=== PATIENT | female | born 1955 | race Caucasian/White ===

== ENCOUNTER 2017-06-22 10:42 | Outpatient (CLI) | payer MEDICAID ==
[~2017-06-22] VITALS: Ht 167.6 cm; Wt 61.8 kg
--- NOTE | ~2017-06-22 | OP ---
PATIENT NAME: EMMANUEL LIZARRAGA MEDICAL RECORD: [id number] :51 LOCATION:D.CAT ADMISSION DATE: SURGEON: MAXIMINO WHITMAN MD DATE OF OPERATION: 06/22/2017 PROCEDURE: Left heart catheterization, selective coronary angiography, right radial approach. CATHETERS: [place] catheter, radial sheath. The procedure was well tolerated. We proceeded with PTCA stenting of the LAD after procedure finished. FINDINGS: Left ventriculography in 30-degree IBRAHIM view: Normal wall motion, normal systolic function. CORONARY ANATOMY. LEFT MAIN: The left main is free of disease. LAD: Has 2 sequential stenosis, 1 very proximal of 80%, 1 distal 90+ percent. CIRCUMFLEX: Circumflex is free of disease. RIGHT CORONARY ARTERY: Right coronary artery is dominant, gives rise to PDA, free of disease. IMPRESSION: Plan intervention LAD momentarily. DESCRIPTION OF PROCEDURE: Using indwelling sheath, XB LAD guiding catheter, good guide support followed by 300 cm Whisper wire was placed across both occlusions in the LAD. Distal vessel was addressed with a 3.0 x 12 mm Resolute drug-eluting stent up to 12 atmospheres. The proximal almost ostial 80% lesion was addressed with a 3.0 x 50 mm Resolute drug-eluting stent up to 14 atmospheres. Final angiography shows excellent resolution of 90% stenosis distally and 80% stenosis proximally. SHANI flow was 3 throughout the procedure. Plavix was loaded in the lab. Sheath closed with TR band. TRANSINT:[id number] Voice Confirmation ID: [id number] DOCUMENT ID: [id number] MAXIMINO WHITMAN MD at 1155 CC: [id number] DICTATION DATE: 06/22/17 1347 TIRE STRIPPER: 06/22/17 1410 DEP CLI 06/22/17 [facility] [address] [id number]
--- NOTE | ~2017-06-22 | HEMODYNAMI ---
PATIENT:EMMANUEL LIZARRAGA MEDICAL RECORD: [id number] : 51 LOCATION:ROLF ADMISSION DATE: 06/22/17 Generatedon:06/22/201713:49 Patient name: EMMANUEL LIZARRAGA Patient #: [id number] : 1955 Date of study: 06/22/2017 Page: Of Hemodynamic Procedure Report Patient Data Patient Demographics Procedure consent was obtained First Name: EMMANUEL Gender: Female Last Name: ELHAM : 1955 Middle Initial: DONTA RUTHERFORD Age: 61 year(s) Patient #: [id number] Race: SSN: [id number] Additional ID: [id number] Contact details [address]: [address] [place] [address] State: [place] City: [place] Zip code: [address] Admission Admission Data Admission Date: 06/22/2017 Admission Time: 10:42 Arrival Date: 06/22/2017 Arrival Time: 13:00 Admit Source: Other Insurance Payor: Private health insurance Height (in.): 66 BSA: 1.69 (m2) Height (cm.): 167.64 BMI: 21.63 (kg/m2) Weight (lbs.): 134 Weight (kg.): 60.78 Lab Results Lab Result Date: 06/22/2017 Lab Result Time: 0:00 Biochemistry Name Units Result Min Max BUN mg/dl 16 --(---*)-- 7 18 Creatinine mg/dl 0.8 --(-*--)-- 0.6 1.3 CBC Name Units Result Min Max Hemoglobin g/dl 13.7 --(*---)-- 13.5 17.5 Procedure Procedure Types Cath Procedure Diagnostic Procedure [facility] w/Coronaries PCI Procedure Coronary Stent Coronary Stent Initial Procedure Description Procedure Date Procedure Date: 06/22/2017 Procedure Start Time: 13:20 Procedure End Time: 13:44 Procedure Staff Name Function Esteban Goodwin MD Performing Physician Eleonora Hendrix RT Monitor Gustabo Baumann RN Nurse Fabiola George RT Scrub Procedure Data Cath Procedure Fluoroscopy Diagnostic fluoroscopy Total fluoroscopy Time: 5.7 time: 5.7 min min Diagnostic fluoroscopy Total fluoroscopy dose: 698 dose: 698 mGy mGy Contrast Material Contrast Material Type Amount (ml) Isovue 300 104 Entry Location Entry Primary Successful Side Size Upsize Upsize Entry Closure Edwards ccessful Closure Location (Fr) 1 (Fr) 2 (Fr) Remarks Device Remarks Radial Right 6 Fr Mechanical artery Short Compression Estimated blood loss: 5 ml Diagnostic catheters Device Type Used For End Catheter Placement DIAGNOSTIC [place] 110cm 5 Multi-vessel Fr catheter ([id number]) Angiography Procedure Complications No complications Procedure Medications Medication Administration Route Dosage Oxygen etCO2 Nasal cannula 2 l/min Heparin Flush Bag added to field 2 bags (1000units/500ml NS) 0.9% NaCl I.V. 100 ml/hr Radial Cocktail added to field 1 syringe (Verapomil 2mg/Nitro 400mcg/Heparin 1500units) Fentanyl I.V. 50 mcg Versed I.V. 1 mg Radial Cocktail I.A. 1 syringe (Verapomil 2mg/Nitro 400mcg/Heparin 1500units) Zofran I.V. 4 mg Fentanyl I.V. 50 mcg Versed I.V. 1 mg Heparin Bolus I.V. 4000 units Integrilin (Bolus I.V. 5.6 ml 2mg/ml) Plavix P.O. 600 mg Hemodynamics Rest BSA: 1.69 (m2) HGB: 13.7 (g/dl) O2 Consumption: Estimated: 155.08 (ml/min) O2 Co nsumption indexed: Estimated:91.76 (ml/min/m) Heart Rate: 65 (bpm) Pressure Samples Time Site Value (mmHg) Purpose Heart Use Rate(bpm) 13:24 LV 156/17,-8 Snapshot 43 13:25 AO 131/75(102) Pullback 101 13:25 LV 121/-12,-10 Pullback 101 Gradients Valve Time Site 1 Site 2 Mean SEP/DFP Peak To Heart Use (mmHg) (sec/min) Peak Rate (mmHg) (bpm) Aortic 13:25 LV AO 0 101 121/-12,-10 131/75(102) Calculations Valve P-P Mean Valve Index Valve Source Name Gradient Area Flow (cm2) Aortic 0 0 Snapshots Pre Cath Intra NCS Post Cath Vital Signs Time Heart Resp SPO2 etCO2 NIBP (mmHg) Rhythm Pain Sedation Rate (ipm) (%) (mmHg) Status Level (bpm) 13:04:58 64 16 98 0 154/89(133) NSR 0 (11) 10(A) , No pain 13:09:14 69 17 96 0 145/83(110) NSR 0 (11) 10(A) , No pain 13:13:24 67 17 96 0 149/94(115) NSR 0 (11) 10(A) , No pain 13:17:34 64 17 96 0 157/92(110) NSR 0 (11) 10(A) , No pain 13:21:46 90 17 96 35.5 156/103(139) NSR 0 (11) 10(A) , No pain 13:25:58 92 17 99 38.4 138/94(126) NSR 0 (11) 10(A) , No pain 13:30:05 80 16 98 11.8 139/88(111) NSR 0 (11) 9(A) , No pain 13:34:16 79 18 98 28 140/85(120) NSR 0 (11) 9(A) , No pain 13:38:24 84 16 100 37.7 150/93(128) NSR 0 (11) 9(A) , No pain 13:42:33 91 16 100 39.1 159/96(130) NSR 0 (11) 9(A) , No pain Medications Time Medication Route Dose Verified Delivered Reason Not es Effectiveness by by 13:23:35 Oxygen etCO2 2 l/min Esteban Coleman Per physician Nasal [facility] RN cannula 13:23:44 Heparin Flush added 2 bags Esteban Coleman used for Bag to [facility] RN procedure (1000units/500ml field LACY NS) 13:23:53 0.9% NaCl I.V. 100 Esteban Coleman Per physician ml/hr [facility] RN, MD 13:24:03 Radial Cocktail added 1 Esteban Coleman used for (Verapomil to syringe [facility] RN procedure 2mg/Nitro field LACY 400mcg/Heparin 1500units) 13:24:11 Fentanyl I.V. 50 mcg Esteban Coleman for sedation [facility] RN, MD 13:24:19 Versed I.V. 1 mg Esteban Coleman for sedation [facility] RN, MD 13:24:39 Radial Cocktail I.A. 1 Esteban Orellana for (Verapomil syringe ChristaAnthony Goodwin vasodilation 2mg/Nitro MD LACY 400mcg/Heparin 1500units) 13:27:13 Zofran I.V. 4 mg Esteban Coleman for nausea [facility] RN, MD 13:27:22 Fentanyl I.V. 50 mcg Esteban Coleman for sedation [facility] RN, MD 13:27:26 Versed I.V. 1 mg Esteban Coleman for sedation [facility] RN, MD 13:32:34 Heparin Bolus I.V. 4000 Esteban Coleman for units [facility] RN anticoagulation 13:32:48 Integrilin I.V. 5.6 ml Esteban Coleman for (Bolus 2mg/ml) [facility] RN antiplatelet therapy 13:44:21 Plavix P.O. 600 mg Esteban Coleman for [facility] RN antiplatelet therapy Procedure Log Time Note 12:44:04 Informed consent obtained and on chart 12:50:28 Eleonora Hendrix RT(R) sent for patient. Start room use. 13:03:37 Time tracking: Regular hours 13:03:41 Plan of Care:Hemodynamics will remain stable., Cardiac rhythm will remain stable., Comfort level will be maintained., Respiratory function will remain adequate., Patient/ family verbilizes understanding of procedure., Procedure tolerated without complication., Recovers from procedure without complications.. 13:03:46 Patient received from Pre/Post Procedure Room to CCL 2 Alert and oriented. Tansferred to table in Supine position. 13:03:47 Warm blankets applied, and karina hugger turned on for patient comfort. 13:03:47 Correct patient and procedure confirmed by team. 13:03:48 ECG and BP/O2 sat monitors applied to patient. 13:03:49 Vital chart was started 13:03:52 Baseline sample Acquired. 13:03:56 Rhythm: sinus rhythm 13:03:57 Full Disclosure recording started 13:04:10 H&P Date Dictated: 06/16/2017 Within 30 days and on chart., H&P Addendum completed by physician on day of procedure. (MUST COMPLETE FOR ALL OUTPATIENTS). 13:04:11 Pre-procedure instructions explained to patient. 13:04:12 Pre-op teaching completed and patient verbalized understanding. 13:04:13 Family in waiting room. 13:04:14 Patient NPO since Midnight. 13:04:16 Is the patient allergic to Iodine/contrast media? No. 13:04:18 Was the patient premedicated? No 13:04:20 Is patient on blood thinner?No 13:04:22 Patient diabetic? Yes. 13:04:23 If diabetic: On Metformin? Yes 13:04:26 If on Metformin: Last Dose? 06/20/2017 13:04:30 Previous problem with sedation/anesthesia? No ? 13:04:35 Snore? Yes 13:04:36 Sleep apnea? No 13:04:37 Deviated septum? No 13:04:38 Opens mouth fully? Yes 13:04:38 Sticks out tongue? Yes 13:04:40 Airway obstruction? No ? 13:04:43 Dentures? No ? 13:05:04 Pre procedure: right dorsailis pedis pulse 1+ Palpable, but thready & weak; easily obliterated 13:05:07 Pre procedure: left dorsailis pedis pulse 1+ Palpable, but thready & weak; easily obliterated 13:05:16 Patient pain scale 0/10 ?. 13:05:41 Lab results completed and on chart. 13:05:45 Right Radial & Right Groin area was prepped with chlora-prep and draped in sterile fashion 13:05:46 Alarms reviewed by R. N. 13:05:47 Sharps counted by scrub and verified by R.N. 13:13:01 Admit Source: Other 13:13:03 Arrival Date: 06/22/2017 1:00:00 PM 13:13:13 Insurance Payor : Private health insurance 13:13:22 Patient Height : 66 inches 13:13:25 Patient Weight : 134 lbs 13:15:00 Lab Result : Hemoglobin 13.7 g/dl 13:15:00 Lab Result : Creatinine 0.8 mg/dl 13:15:00 Lab Result : BUN 16 mg/dl 13:18:18 Physician arrived 13:18:19 --------ALL STOP TIME OUT------ 13:18:19 Final Timeout: patient, procedure, and site verified with staff and physician. All members of the team are in agreement. 13:18:22 Right Radial & Right Groin site verified by team. 13:18:25 Physical assessment completed. ASA score P 2 - A patient with mild systemic disease as per Esteban Goodwin MD. 13:18:29 Sedation plan: IV Moderate Sedation Medication:Versed, Fentanyl 13:18:35 Use device set Radial Dx or PCI 13:18:36 ACIST Syringe (83141) opened to sterile field. 13:18:37 Medline Cath Pack ([id number]) opened to sterile field. 13:18:37 Bag Decanter (2002S) opened to sterile field. 13:18:39 DIAGNOSTIC WIRE .035 260cm J wire (905281) opened to sterile field. 13:18:48 ACIST Hand Control (30723) opened to sterile field. 13:18:49 ACIST Manifold (29659) opened to sterile field. 13:18:50 Tegaderm 4 x 4 (1626W) opened to sterile field. 13:18:50 MBrace Wrist Support ([id number]) opened to sterile field. 13:20:34 SHEATH 6Fr Prelude Radial ([id number]) opened to sterile field. 13:20:40 Procedure started. 13:20:46 Local anesthetic to right radial artery with Lidocaine 2% by Esteban Goodwin MD.INITIAL ACCESS ONLY 13:21:00 A 6 Fr Short sheath was inserted into the Right Radial artery 13:23:16 A DIAGNOSTIC [place] 110cm 5 Fr catheter ([id number]) was advanced over the wire and used for Multi-vessel Angiography. 13:23:35 Oxygen 2 l/min etCO2 Nasal cannula was administered by Jared Shell RN; Per physician; 13:23:44 Heparin Flush Bag (1000units/500ml NS) 2 bags added to field was administered by Jared Shell RN; used for procedure; 13:23:53 0.9% NaCl 100 ml/hr I.V. was administered by Jared Shell RN; Per physician; 13:24:03 Radial Cocktail (Verapomil 2mg/Nitro 400mcg/Heparin 1500units) 1 syringe added to field was administered by Jared Shell RN; used for procedure; 13:24:11 Fentanyl 50 mcg I.V. was administered by Jared Shell RN; for sedation; 13:24:19 Versed 1 mg I.V. was administered by Jared Shell RN; for sedation; 13:24:38 LV hemodynamics recorded. 13:24:39 Radial Cocktail (Verapomil 2mg/Nitro 400mcg/Heparin 1500units) 1 syringe I.A. was administered by Esteban Goodwin MD; for vasodilation; ::42 LV gram done using IBRAHIM 13::45 Injector settings: Ml/sec: 5, Volume: 15, 13:24:56 EF : 55 % 13:25:40 LCA angiography performed. 13::43 Injector settings: Ml/sec: 3, Volume: 6, 13::13 Zofran 4 mg I.V. was administered by Jared Shell RN; for nausea; 13:27:22 Fentanyl 50 mcg I.V. was administered by Jared Shell RN; for sedation; 13::26 Versed 1 mg I.V. was administered by Jared Shell RN; for sedation; 13:27:49 RCA angiography performed. 13:27:52 Injector settings: Ml/sec: 3, Volume: 6, 13:28:06 Catheter removed. 13:28:07 Proceeding to intervention. 13:28:54 INFLATOR Merit BasixCompak (XC0185) opened to sterile field. 13:28:55 WHISPER 300cm guide wire ([id number]) opened to sterile field. 13:29:39 GUIDE 6FR XBLAD 3.5 catheter ([id number]) opened to sterile field. 13:30:24 6 Fr xblad 3.5 guide catheter was inserted over the wire 13:30:29 whisper wire advanced. 13:30:31 Wire advanced across lesion. 13:32:34 Heparin Bolus 4000 units I.V. was administered by Jared Shell RN; for anticoagulation; 13:32:48 Integrilin (Bolus 2mg/ml) 5.6 ml I.V. was administered by Jared Shell RN; for antiplatelet therapy; 13:36:16 Inflation Number: 1 A DANNA OTW 3.0 x 12 stent ([id number]) was prepped and advanced across the Mid LAD. The stent was deployed at 14 OLGA for 0:30 (min:sec). 13:37:23 Stent catheter was removed intact over wire. 13:39:45 Inflation Number: 1 A DANNA OTW 3.0 x 15 stent ([id number]) was prepped and advanced across the Prox LAD. The stent was deployed at 14 OLGA for 0:30 (min:sec). 13:40:23 Stent catheter was removed intact over wire. 13:40:23 Wire removed. 13:40:24 Guide catheter removed. 13:40:48 TR BAND Standard ([id number]) opened to sterile field. 13:41:46 Sheath removed intact; hemostasis achieved with Mechanical Compression to the Right Radial artery. 13:41:48 Procedure ended.(Physican Out) 13:42:17 Fluoroscopy time 05.70 minutes. 13:42:22 Flurop Dose total: 698 13:42:22 Fluoroscopy dose: 698 mGy 13:42:40 Contrast amount:Isovue 300 104ml. 13:42:48 Sharps counted by scrub and verified by R.N. 13:42:51 TR band inflated with 10cc of air. 13:42:57 Insertion/operative site no bleeding no hematoma. 13:43:02 Post right radial artery:stable 13:43:03 Post Procedure Pulses reassessed and unchanged 13:43:05 Post procedure rhythm: unchanged. 13:43:08 Estimated blood loss: 5 ml 13:43:09 Post procedure instruction explained to patient.Patient verbalizes understanding. 13:43:09 Patient needs reinforcement of post procedure teaching. 13:43:25 Procedure type changed to Cath procedure, Diagnostic procedure, LHC, LHC w/Coronaries, PCI procedure, Coronary Stent, Coronary Stent Initial 13:43:40 Procedure and supply charges have been captured, reviewed, submitted and are correct. 13:43:46 Procedure Complication : No complications 13:43:48 Vital chart was stopped 13:43:49 See physician's report for complete and final results. 13:44:06 Report given to Pre/Post Procedure Room. 13:44:09 Patient transfered to Pre/Post Procedure Room with Stretcher. 13:44:11 Procedure ended. 13:44:11 Full Disclosure recording stopped 13:44:20 ACC-PCI Only Patient was given prescriptions, or instructed by Esteban Goodwin MD to start/continue the following medications upon discharge: Plavix 13:44:21 Plavix 600 mg P.O. was administered by Jared Shell RN; for antiplatelet therapy; 13:44:30 End room use (Document Last) Intervention Summary Intervention Notes Time ActionType Lesion and Equipment Action# Pressure Duration Attributes Used 13:36:16 Place stent Mid LAD DANNA OTW 3.0 1 14 00:30 x 12 stent ([id number]) 13:39:45 Place stent Prox LAD DANNA OTW 3.0 1 14 00:30 x 15 stent ([id number]) Device Usage Item Name Manufacture Quantity Catalog Number Hospital Part Current M inimal Lot# / Charge Number Stock Stock Serial# Code ACIST Syringe Acist 1 76475 768976 248024 427069 2 0 (56434) Medical Systems Inc Medline Cath Cardinal 1 [id number] 690197 73666 915248 5 Topadmit ([id number]) Bag Decanter Microtek 1 2001S 656615 38431 676689 5 (2001S) Medical Inc. DIAGNOSTIC WIRE [facility] [place] 1 641963 722522 441404 433592 3 0 .035 260cm J wire (870187) ACIST Hand Acist 1 99382 031677 832150 933334 5 Control (18245) Medical Systems Inc ACIST Manifold Acist 1 29750 491986 003949 916988 5 (21626) Medical Systems Inc Tegaderm 4 x 4 3M 1 1626W 904376 859227 327068 5 (1626W) MBrace Wrist Advanced 1 140-0250-00 086436 64120 699775 5 Support Vascular ([id number]) Dynamics SHEATH 6Fr Merit 1 [id number] 034688 556532 712336 5 Prelude Radial Medical ([id number]) DIAGNOSTIC Terumo 1 40-8589 764887 735951 758956 5 [place] 110cm 5 Fr catheter (993063) INFLATOR Merit Merit 1 TL8964 981039 648360 650593 1 5 SCL Medical (DB9739) WHISPER 300cm Lewis 1 [id number] 809870 981211 974890 5 guide wire Vascular (9362454XL) GUIDE 6FR XBLAD Cardinal 1 [id number] 004398 036715 344475 1 0 3.5 catheter Health (16148069) DANNA OTW 3.0 x Medtronic 1 [id number] 829665 159994 134643 5 [id number] 12 stent ([id number]) DANNA OTW 3.0 x Medtronic 1 [id number] 415709 673882 541325 5 [id number] 15 stent ([id number]) TR BAND Terumo 1 [id number] 009462 765099 431152 4 0 Standard ([id number]) Signature Audit [place] Stage Time Signature Unsigned Intra-Procedure 06/22/2017 Eleonora Hendrix 1:49:04 PM RT(R) Signatures Monitor : Eleonora Hendrix RT Signature : Date : Time : [id number] [place] [address]
[2017-06-22] MEDS ORDERED: ZANTAC150 MG PO (11:01)
[2017-06-22] MEDS ORDERED: LIPITOR10 MG PO (11:01)
[2017-06-22] MEDS ORDERED: VASOTEC10 MG PO (11:01)
[2017-06-22] MEDS ORDERED: ESTRACE 0.5 MG0.5 MG PO (11:02)
[2017-06-22] MEDS ORDERED: NORVASC10 MG PO (11:02)
[2017-06-22] MEDS ORDERED: FLUTICASONE PRO16 GM NASAL (11:02)
[2017-06-22] MEDS ORDERED: METFORMIN HCL500 M1 PO (11:03)
[2017-06-22] MEDS ORDERED: GLUCOTROL XL 1010 MG PO (11:04)
[2017-06-22 11:11] VITALS: BP 158/81; Ht 167.6 cm; Wt 61.8 kg
[2017-06-22 11:19] LABS: BASOPHILS 0.2 % (0-2); EOSINOPHILS 1.4 % (0-7); HEMATOCRIT 39.7 % (36.0-48.0); HEMOGLOBIN 13.7 g/dL (12-16); IMMATURE GRANULOCYTES 0.2 % (0-5); MCH 30.6 pg (26.0-34.0); MCHC 34.5 g/dL (31.0-37.0); MCV 88.6 fL (80.0-100.0); MONOCYTES 7.2 % (2-11); PLATELET COUNT 204 10x3/uL (130-400); RBC 4.48 10x6/uL (4.00-5.40); RDW 13.1 % (11.5-14.5); WBC 6.6 10x3/uL (4.8-10.8)
[2017-06-22 11:29] LABS: CALC OSMOLALITY 283 mosm/kg (275-300); CARBON DIOXIDE 24.8 mmol/L (21.0-32.0); CHLORIDE - SERUM 106 mmol/L (98-107); CREATININE - SERUM 0.8 mg/dL (0.6-1.3); GLUCOSE 126 mg/dL (74-106); POTASSIUM - SERUM 3.8 mmol/L (3.5-5.1); SODIUM 141 mmol/L (136-145); UREA NITROGEN 16 mg/dL (7-18); eGFR NON AFRICAN AMERICAN 77 mL/min (90-120)
[2017-06-22] MEDS ORDERED: PLAVIX75 MG PO (14:41)
== END 2017-06-22 17:45 | disposition home or self-care (01) ==
LOC: D.CATH 10:42
PROVIDERS: Internal Medicine Interventional Cardiology
DX: I20.9 Angina pectoris, unspecified (principal); R07.9 Chest pain, unspecified; E78.5 Hyperlipidemia, unspecified; E11.9 Type 2 diabetes mellitus without complications; Z01.812 Encounter for preprocedural laboratory examination

== ENCOUNTER → 2018-07-19 13:18 | Outpatient (CLI) | payer MEDICARE, BC ==
[~2018-07-19 13:18] MED LIST: ESTRACE 0.5 MG0.5 MG PO; FLUTICASONE PRO16 GM NASAL; GLUCOTROL XL 1010 MG PO; LIPITOR10 MG PO; METFORMIN HCL500 M1 PO; NORVASC10 MG PO; PLAVIX75 MG PO; VASOTEC10 MG PO; ZANTAC150 MG PO
--- NOTE | 2018-07-21 13:47 | EC ---
PATIENT:EMMANUEL LIZARRAGA DATE OF SERVICE: 07/19/18 SEX: F MEDICAL RECORD: [id number] DATE OF : 51 LOCATION:[facility] AGE OF PATIENT: 63 ADMISSION DATE: 07/19/18 REFERRING PHYSICIAN: INTERPRETING PHYSICIAN: MAXIMINO WHITMAN MD ECHOCARDIOGRAM REPORT ECHO CHARGES 4 ECHO COMPLETE Date: 07/19/18 CLINICAL DIAGNOSIS: H/O CAD/HTN ECHOCARDIOGRAPHIC MEASUREMENTS (adult normal given) AC root (d.<3.7cm) 2.9 cm LV Septum d (<1.2 cm> 0.9 cm Valve Excursion 1.6 cm LV Septum (systole) 1.4 cm Left Atria (s.<4.0cm> 2.3 cm LVPW d(<1.2cm) 0.8 cm RV (d.<2.3cm) 2.3 cm LVPW (sytole) 1.4 cm LV diastole(<5.6CM) 5.5 cm MV E-F(>70mm/sec) cm LV systole 3.3 cm LVOT Diameter 1.7 cm MV exc.(>10mm) cm Est.ejection fraction (50-75%) % DOPPLER: LVIT cm/sec A 87.0 cm/sec E 75.0 cm/sec LA cm/sec RVSP 34.2 mmHg LVOT 93.0 cm/sec AOP1/2T m/s Asc. 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 Kidd TAPE# PACS Pericardial Effusion N DATE OF SERVICE: 07/19/2018 Adequate 2-D echo, color-flow and spectral Doppler, and M-mode. No LVH. LV internal dimensions are normal. Wall motion is normal. EF is greater than or equal to 55%. Aortic valve is tricuspid. No evidence of stenosis by Doppler interrogation. Left atrium is normal at 3.3 cm. Mitral valve shows no prolapse. Epih-fw-fspnzdyv MR. Right-sided chambers are grossly normal. Mild TR. ECHOCARDIOGRAM REPORT [id number] EMMANUEL LIZARRAGA TRANSINT:[id number] Voice Confirmation ID: [id number] DOCUMENT ID: [id number] MAXIMINO WHITMAN MD at 1347 CC: [id number] DICTATION DATE: 07/20/18 1308 ANALYSIS MANAGER: 07/20/18 1544 DEP CLI 07/19/18 [id number] [place] [id number]
== END | disposition home or self-care (01) ==
LOC: D.HCCARDIO 13:18
DX: I10 Essential (primary) hypertension (principal)